=== PATIENT | female | born 1975 | race Caucasian/White ===

== ENCOUNTER 2025-01-31 10:00 | Emergency (ER) | payer MEDICAID, SELFPAY ==
--- NOTE | 2025-01-31 10:08 | ECG_ITS ---
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
--- NOTE | 2025-01-31 10:13 | XR_ITS ---
WS: [id number] Exam: XR chest 1V portable [id number] Date/Time of Exam: 01/31/2025 10:16 AM Reason For Exam: chest pain No priors. Lungs are fully expanded and clear. Normal cardiomediastinal silhouette. Bony structures are intact. Scattered calcified granulomas. XR/XR chest 1V portable [id number] IMPRESSION: 1. No acute cardiopulmonary finding.
[2025-01-31 10:14] VITALS: BP 158/114; PULSE 110; RESP 21; TEMP 36.7; O2SAT 99; BMI 34.0
--- NOTE | 2025-01-31 10:14 | W.ED.CHESTPA ---
HPI - Chest Pain General: Chief Complaint: Chest Pain Stated Complaint: abnormal ekg sent from urgent care Time Seen by Provider: 01/31/25 10:12 History of Present Illness: 49-year-old female referred to the ER from one of the [facility]. Initial report was that she had an abnormal EKG. Talk to the patient she is having severe spasmodic like chest pain caused her to writhe around in the bed during her exam. She will get intermittent complaints of sharp spasm-like squeezing pain resolved after just a few seconds is worse when she moves or with palpation along the left side of the sternum. She denies fever sweats or chills no hematemesis. No dysuria urgency or frequency no particular flank pain. Pain is reproduced with palpation and with movement in her arm even with sitting up. Patient reports she has had the pain for the last 3 days is much worse today. When she is initially seen EKG shows sinus tachycardia without any acute changes as mentioned of an EKG done in the office note but no other EKG on the chart. We are working at getting a copy of this. Was at an [facility] may just be a IT issue at this point Associated symptoms: Deny abdominal pain, dyspnea or fever(s) Related Data Previous Rx's ?Medication ?Instructions ?Recorded hydrocodone 5 mg-acetaminophen 325 1 tab PO Q6H PRN pain #12 tabs 01/31/25 mg tablet prednisone 20 mg tablet 20 mg PO TID #15 tabs 01/31/25 Allergies Allergy/AdvReac Type Severity Reaction Status Date / Time warfarin (From Coumadin) Allergy Severe Unresponsiv Verified 01/31/25 11:04 e tramadol Allergy Breathing Verified 01/31/25 09:31 difficulties heparin AdvReac Severe Unresponsiv Verified 01/31/25 11:04 e Penecilin Allergy Braething Uncoded 01/31/25 09:31 issues Review of Systems Const: Denies: fever(s) or chills Card: Reports: chest pain Resp: Denies: dyspnea GI: Denies: abdominal pain : Denies: dysuria, urinary frequency or urinary urgency Musc: Denies: neck pain or back pain Skin/Breast: Denies: rash PFSH ED PFSH: Social History Smoking and tobacco/nicotine status: never used tobacco/nicotine Physical Exam Const: GENERAL APPEARANCE: cooperative ORIENTATION/CONSCIOUSNESS: Yes awake, Yes oriented to person, Yes oriented to place and Yes oriented to time HENMT: COMMON NORMALS: normocephalic, atraumatic and hearing grossly normal bilaterally HEAD & SCALP: normocephalic and atraumatic Resp: COMMON NORMALS: normal respiratory effort, No retractions, No use of accessory muscles and clear to auscultation bilaterally AUSCULTATION: clear to auscultation bilaterally Cardio: COMMON NORMALS: regular rate, regular rhythm and No murmurs present (Cardio) RATE: regular rate RHYTHM: regular rhythm GI: COMMON NORMALS: Soft to palpation and No hepatosplenomegaly present AUSCULTATION: Yes normoactive bowel sounds PALPATION: Yes Soft to palpation, No Tenderness to palpation present (GI), No Guarding due to palpation present (GI) and Yes No hepatosplenomegaly present Extremity: COMMON NORMALS: normal to inspection, capillary refill normal, no clubbing, cyanosis or edema, no calf tenderness and no pedal edema Neuro: SENSORIUM/ORIENTATION: Yes oriented to person, Yes oriented to place and Yes oriented to time Skin: COMMON NORMALS: no rashes or lesions noted GENERAL SKIN EXAM: no rashes or lesions noted Course Vital Signs: Vital signs: Vital Signs Temperature 98.1 F 01/31/25 10:14 Pulse Rate 81 01/31/25 14:05 Respiratory Rate 21 H 01/31/25 10:14 Blood Pressure 134/91 01/31/25 14:05 Pulse Oximetry 98 01/31/25 14:05 Oxygen Delivery Me thod Room Air 01/31/25 12:24 MDM - Chest Pain Medical Decision Making Labs and imaging reviewed. Patient does have a bit of an anion gap. Troponins are less than 6 on both the initial and the 2-hour follow-up. Her initial EKG shows a sinus tachycardia with a rate of [address] elevations. Chest pain worse with deep inspiration. Repeat EKG sinus rhythm tachycardia has resolved. Rate of [address] changes. Will discharge home pleuritic chest pain with reproducible pain with deep inspiration. Follow-up with primary care Medical Records I reviewed the patient's medical records. Lab Data I reviewed the patient's lab results. 01/31/25 10:25 01/31/25 10:25 Radiology Impressions Chest X-Ray 01/31/25 10:13 IMPRESSION: 1. No acute cardiopulmonary finding. Chest CTA 01/31/25 10:20 IMPRESSION: Multiple small calcifications throughout both lung [place] and small calcified lymph nodes. Findings are suggestive of healed granulomatous disease Laboratory Results WBC 7.57 10^3/uL (3.29-11.43) 01/31/25 10:25 RBC 5.53 10^6/uL (3.85-5.65) 01/31/25 10:25 Hgb 16.00 g/dL (11.27-16.99) 01/31/25 10:25 Hct 47.4 % (36-47) H 01/31/25 10:25 MCV 85.7 fl (85-98) 01/31/25 10:25 MCH 28.9 pg (27-33) 01/31/25 10:25 MCHC 33.8 g/dL (30-55) 01/31/25 10:25 RDW 13.1 % (12.1-15.1) 01/31/25 10:25 Plt Count 179 10^3/cmm (157-399) 01/31/25 10:25 MPV 9.7 fL (7.4-10.4) 01/31/25 10:25 Neut % (Auto) 71.5 % 01/31/25 10:25 Lymph % (Auto) 20.7 % 01/31/25 10:25 Gordon % (Auto) 6.7 % 01/31/25 10:25 Eos % (Auto) 0.3 % 01/31/25 10:25 Baso % (Auto) 0.5 % 01/31/25 10:25 Neut # (Auto) 5.41 10^3/uL (1.8-7.7) 01/31/25 10:25 Lymph # (Auto) 1.6 10^3/uL (0.8-4.8) 01/31/25 10:25 Gordon # (Auto) 0.5 10^3/uL (0.2-0.9) 01/31/25 10:25 Eos # (Auto) 0.0 10^3/uL (0.0-0.8) 01/31/25 10:25 Baso # (Auto) 0.0 10^3/uL (0.0-0.1) 01/31/25 10:25 Nucleated RBC % (auto) 0 % 01/31/25 10:25 Nucleated RBCs # 0.0 /100WBC 01/31/25 10:25 Sodium 137 mmol/L (136-145) 01/31/25 10:25 Potassium 4.7 mmol/L (3.5-5.1) 01/31/25 10:25 Chloride 98 mmol/L (98-107) 01/31/25 10:25 Carbon Dioxide 19 mmol/L (22-29) L 01/31/25 10:25 Anion Gap 24.7 (5-19) H 01/31/25 10:25 BUN 7 mg/dL (6-20) 01/31/25 10:25 Creatinine 0.8 mg/dL (0.5-0.9) 01/31/25 10:25 GFR Calculation 76.9 mL/min (90-130) L 01/31/25 10:25 Glucose 107 mg/dL (65-115) 01/31/25 10:25 Calculated Osmolality 282 mOsm/kg (285-295) L 01/31/25 10:25 Calcium 9.8 mg/dL (8.5-10.5) 01/31/25 10:25 Total Bilirubin 0.4 mg/dL (0.15-1.2) 01/31/25 10:25 AST 34 U/L (0-32) H 01/31/25 10:25 ALT 21 U/L (0-33) 01/31/25 10:25 Alkaline Phosphatase 82 U/L (35-105) 01/31/25 10:25 Troponin T Baseline < 6 ng/L (0-10) 01/31/25 10:25 Troponin T 120 Minute < 6.0 ng/L (0-10) 01/31/25 12:16 Delta Troponin T 0 ABS# (0-10) 01/31/25 12:16 Total Protein 8.3 g/dL (6.6-8.7) 01/31/25 10:25 Albumin 4.8 g/dL (3.5-5.2) 01/31/25 10:25 Globulin 3.5 g/dL (1.3-4.6) 01/31/25 10:25 Urine Opiates Screen Positive ng/mL (Negative) H 01/31/25 11:23 Ur Barbiturates Screen Negative ng/mL (Negative) 01/31/25 11:23 Ur Phencyclidine Scrn Negative ng/mL (Negative) 01/31/25 11:23 Ur Amphetamines Screen Negative ng/mL (Negative) 01/31/25 11:23 U Benzodiazepines Scrn Negative ng/mL (Negative) 01/31/25 11:23 Urine Cocaine Screen Negative ng/mL (Negative) 01/31/25 11:23 U Marijuana (THC) Screen Positive ng/mL (Negative) H 01/31/25 11:23 All radiology interpretation(s) finalized by discharge Discharge Plan Discharge Patient Disposition: Home Clinical Impression: Pleuritic chest pain Condition: Stable Prescriptions: New hydrocodone-acetaminophen 5-325 mg tablet 1 tab PO Q6H PRN (Reason: pain) Qty: 12 0RF prednisone 20 mg tablet 20 mg PO TID Qty: 15 0RF Rx Instructions: 1 p.o. 3 times daily x3 days, 1 p.o. twice daily x2 days, 1 p.o. daily x2 days Discharge Orders: Discharge ED (Routine); Ordered 01/31/25 Ordered By: Star Tai Referrals: Meche Abbott MD [Physician, Family Practice] María Sullivan MD [Staff Physician, Family Practice] Nikita Mckeon MD [Physician, Family Practice] Discharge Diet: Usual diet Discharge Activity: Resume usual activity Patient Instructions: Opioid Safety, Pain Management Activity Restrictions/Additional Instructions: Thank you for choosing [facility] for your healthcare needs today. It is very important that you follow up as instructed or that you return to the Emergency Department should you have concerns or if your condition changes or worsens in any way. You were seen in the emergency room with complaints of chest pain associated with movement and palpation. Your evaluation emergency room showed normal cardiac enzymes and EKG CT of your chest did not show any pneumothorax pneumonia fracture or pulmonary embolism. On exam there is no sign of varicella-zoster. Suspect your pain is pleuritic and musculoskeletal in nature you are given prednisone taper hydrocodone to use as needed follow-up with primary care doctor if not improving Print Language: Kazakh Coding Level of Care Code ED Hospital Nursing Assistant for Amie Martinez
--- NOTE | 2025-01-31 10:20 | CTR_ITS ---
PROCEDURE INFORMATION: Exam: CTA Chest With Contrast Exam date and time: 01/31/2025 10:47 AM Age: 49 years old Clinical indication: Pain; Left-sided; Additional info: Chest pain TECHNIQUE: Imaging protocol: Computed tomographic angiography of the chest with contrast. Exam focused on the arteries. 3D rendering (Not supervised by radiologist): MIP and/or 3D reconstructed images were created by the technologist. Radiation optimization: All CT scans at this facility use at least one of these dose optimization techniques: automated exposure control; mA and/or kV adjustment per patient size (includes targeted exams where dose is matched to clinical indication); or iterative reconstruction. Contrast material: OMNI 350; Contrast volume: 66 ml; Contrast route: INTRAVENOUS (IV); COMPARISON: CR XR chest 1V portable [id number] 01/31/2025 10:40 AM RADIATION DOSE METRICS: Total DLP (mGy-cm): 293.22 FINDINGS: Pulmonary arteries: Normal. No pulmonary emboli. Aorta: Unremarkable. No aortic aneurysm. No aortic dissection. Lungs: Multiple scattered calcified granulomas throughout both lung [place]. Pleural spaces: Unremarkable. No pneumothorax. No pleural effusion. Heart: Unremarkable. No cardiomegaly. No pericardial effusion. Lymph nodes: Small calcified mediastinal and hilar lymph nodes. Bones/joints: Unremarkable. No acute fracture. Soft tissues: Unremarkable. CT/CT angio chest PE protcl [id number] IMPRESSION: Multiple small calcifications throughout both lung [place] and small calcified lymph nodes. Findings are suggestive of healed granulomatous disease
[2025-01-31] MEDS: aspirin 81 mg Chew Tablet 324 MG PO (10:28)
[2025-01-31] MEDS: morphine 4 mg/mL SDV 1 mL IVP (10:28)
[2025-01-31] MEDS: ondansetron 2 mg/ML SDV 2 mL 4 MG IVP (10:28)
[2025-01-31 10:33] LABS: Basophils % 0.5 %; Eosinophils % 0.3 %; Hematocrit 47.4 % (36-47); Lymphocytes # 1.6 10^3/uL (0.8-4.8); Lymphocytes % 20.7 %; Mean Corpuscular HGB Conc 33.8 g/dL (30-55); Mean Corpuscular Hemoglobin 28.9 pg (27-33); Mean Corpuscular Volume 85.7 fl (85-98); Mean Platelet Volume 9.7 fL (7.4-10.4); Monocytes # 0.5 10^3/uL (0.2-0.9); Monocytes % 6.7 %; Neutrophils # 5.41 10^3/uL (1.8-7.7); Neutrophils % 71.5 %; Nucleated Red Blood Cells % 0 %; Platelet Count 179 10^3/cmm (157-399); Red Blood Count 5.53 10^6/uL (3.85-5.65); Red Cell Distribution Width 13.1 % (12.1-15.1); White Blood Count 7.57 10^3/uL (3.29-11.43)
[2025-01-31] MEDS: iohexol 350 mg/mL 500 mL Btl (per mL) IV (10:50)
[2025-01-31 10:56] LABS: Troponin(5th) Baseline < 6 ng/L (0-10)
[2025-01-31 10:58] LABS: Alanine Aminotransferase 21 U/L (0-33); Albumin Level 4.8 g/dL (3.5-5.2); Alkaline Phosphatase 82 U/L (35-105); Blood Urea Nitrogen 7 mg/dL (6-20); Calcium 9.8 mg/dL (8.5-10.5); Carbon Dioxide 19 mmol/L (22-29); Chloride 98 mmol/L (98-107); Creatinine Clr Calc Pharmacy 84.1811; Globulin 3.5 g/dL (1.3-4.6); Glomerular Filtration Rate 76.9 mL/min (90-130); Glucose 107 mg/dL (65-115); Osmolality Calculated 282 mOsm/kg (285-295); Sodium 137 mmol/L (136-145); Total Bilirubin 0.4 mg/dL (0.15-1.2); Total Protein 8.3 g/dL (6.6-8.7)
[2025-01-31 11:00] LABS: Anion Gap 24.7 (5-19); Aspartate Amino Transferase 34 U/L (0-32); Potassium 4.7 mmol/L (3.5-5.1)
[2025-01-31] MEDS: sodium chloride 0.9% 1,000 ML 999 ML IV (11:28)
[2025-01-31 11:44] LABS: Amphetamines Screen Urine Negative (Negative); Barbiturates Screen Urine Negative (Negative); Benzodiazepines Screen Urine Negative (Negative); Cocaine Screen Urine Negative (Negative); Opiate Screen Urine Positive (Negative); PCP Screen Urine Negative (Negative); THC Screen Urine Positive (Negative)
[2025-01-31] MEDS: ketorolac 30 mg/mL INJ IVP (11:47)
--- NOTE | 2025-01-31 12:15 | ECG_ITS ---
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
[2025-01-31 12:24] VITALS: PULSE 87; O2SAT 94
[2025-01-31 12:52] LABS: Troponin 5 2HR < 6.0 ng/L (0-10); Troponin 5 2HR Delta 0 ABS# (0-10)
[2025-01-31 14:05] VITALS: BP 134/91; PULSE 81; O2SAT 98
== END 2025-01-31 14:20 | disposition home or self-care (01) ==
PROVIDERS: Emergency Provider Family Medicine
DX: R07.81 Pleurodynia (principal)
CPT/HCPCS: 36415; 71045; 71275; 80053; 80306; 84484; 85025; 93005; 96374; 96375; 99285; J1885; J2270; J2405; J7030; J9999